=== PATIENT | female | born 1960 | race Caucasian/White ===

== ENCOUNTER → 2016-05-22 | Outpatient (CLI) | payer BC | LOC: RAD 11:33 | PROVIDERS: ATTEND Family Medicine | DX: Z12.31 Encounter for screening mammogram for malignant neoplasm of breast (principal) ==

== ENCOUNTER 2016-07-11 06:31 | Day surgery (SDC) | payer BC ==
[~2016-07-11] VITALS: Ht 162.6 cm; Wt 131.0 kg
[~2016-07-11 06:31] MED LIST: AMOX500C5 PO; ATN50T PO; CALC-701 PO; LACTATED RINGERS 1,000 ML IV SCH; LSNP10T PO; MAGN250T35 PO; SERT50TA2 PO; SERT50TA9 PO; SODIUM CHLORIDE FLUSH 3 ML SYR IV PRN; TURM500C8 PO
--- OUTSIDE RECORDS SUMMARY | 2016-07-11 06:35 | XMS REPORT | Continuity of Care Document ---
Author Author [facility] Address Unknown Phone Unavailable Allergies Medications Problems Date Dx Coded Attending Type Code Diagnosis Diagnosed By 07/08/2013 Randy Medley MD Ot V43.65 KNEE JOINT REPLACEMENT STATUS 07/08/2013 Randy Medley MD, Ot V54.81 AFTERCARE FOLLOWING JOINT REPLACEMENT 07/08/2013 Randy Medley MD, Ot V57.1 PHYSICAL THERAPY NEC 12/14/2015 STEVEN BERRY Ot J02.9 ACUTE PHARYNGITIS, UNSPECIFIED 01/28/2016 STEVEN BERRY Ot J02.9 ACUTE PHARYNGITIS, UNSPECIFIED 03/03/2016 STEVEN BERRY Ot J02.9 ACUTE PHARYNGITIS, UNSPECIFIED 03/04/2016 STEVEN BERRY Ot J02.9 ACUTE PHARYNGITIS, UNSPECIFIED 05/26/2016 REGGIE CLARK MD Ot Z12.31 ENCNTR SCREEN MAMMOGRAM FOR MALIGNANT NE 05/26/2016 REGGIE CLARK MD, Ot Z12.31 ENCNTR SCREEN MAMMOGRAM FOR MALIGNANT NE 06/04/2016 REGGIE CLARK MD, Ot Z12.31 ENCNTR SCREEN MAMMOGRAM FOR MALIGNANT NE 06/24/2016 STEVEN BERRY Ot J02.9 ACUTE PHARYNGITIS, UNSPECIFIED 06/24/2016 REGGIE CLARK MD Ot Z12.31 ENCNTR SCREEN MAMMOGRAM FOR MALIGNANT NE 06/26/2016 STEVEN BERRY Ot J02.9 ACUTE PHARYNGITIS, UNSPECIFIED 06/26/2016 REGGIE CLARK MD, Ot Z12.31 ENCNTR SCREEN MAMMOGRAM FOR MALIGNANT NE Procedures Results Encounters ACCT No. Visit Date/Time Discharge Status Pt. Type Provider Facility Loc./Unit Complaint [id number] 07/06/2013 11:00:00 2013 14:30:00 DIS Outpatient Randy Medley MD [facility] PT R TKR [id number] 05/22/2016 11:33:00 ACT Outpatient EDUARDO BROWN, REGGIE [facility] RAD MAMMO SCREENING [id number] 12/08/2015 12:17:00 [facility]
[2016-07-11 06:47] VITALS: BP 130/78
[2016-07-11] MEDS ORDERED: MIDAZOLAM 2 MG/2 ML (VERSED) VIAL ONE (07:12)
[2016-07-11] MEDS ORDERED: PROPOFOL 20 ML IV ONE (07:12)
[2016-07-11] MEDS ORDERED: ALFENTANIL 500 MCG/ML (ALFENTA) 5 ML AMP IV ONE (07:12)
[2016-07-11 08:07] VITALS: BP 108/58
[2016-07-11 08:38] VITALS: BP 108/58
--- NOTE | 2016-07-11 10:50 | OPERATIVE REPORT ---
DATE OF OPERATION: 07/10/2016 PRE-OPERATIVE DIAGNOSIS: Screening colonoscopy POST-OPERATIVE DIAGNOSIS: Colon polyps OPERATIVE PROCEDURE: Total colonoscopy with polypectomy (endoscopic mucosal resection) SURGEON: Miguelangel Brunson MD ANESTHESIA: Monitored anesthesia care FINDINGS: 1. The bowel prep was good. 2. Two small polyps were seen and removed, one at 60 cm which was larger, and one at 80 cm, which was very sessile. Pathology is pending. 3. No diverticula, inflammation or angiodysplasia were seen. INDICATIONS: The patient is a 55-year-old referred by Dr. Nieto for colonoscopy screening. She has not had any bowel habit changes and her family history is negative for colorectal cancer. DESCRIPTION OF PROCEDURE: The patient was informed of the risks and benefits and agreed. She was placed in the left lateral decubitus position and administered IV sedation. When properly sedated a rectal exam was performed, which was normal. The lighted endoscope was passed into the rectum and advanced along the colon. Within the colon at 60 cm, a nodular polyp was seen and removed using saline lift and cautery snare. The scope was then advanced along the rest of the colon to the cecum where the ileocecal valve and the appendiceal orifice were easily seen. The scope was slowly brought back through the ascending, transverse, descending and sigmoid colon. At 80 cm, a flat lesion was noted that may be a polyp, or maybe some other entity, but I removed it just to be sure using the endoscopic mucosal resection technique. The scope was withdrawn through the rest of the colon. No other polyps or neoplasia were seen. The rectum appeared normal on regular view and retroflexion. The scope was removed completing the procedure. The patient tolerated the procedure without complications.
== END 2016-07-11 08:40 | disposition home or self-care (01) ==
LOC: ASC 06:31
PROVIDERS: ATTEND Surgery
DX: Z12.11 Encounter for screening for malignant neoplasm of colon (principal); D12.4 Benign neoplasm of descending colon; I10 Essential (primary) hypertension; E03.9 Hypothyroidism, unspecified; E66.01 Morbid (severe) obesity due to excess calories; Z68.43 Body mass index [BMI] 50.0-59.9, adult; R00.2 Palpitations; Z80.0 Family history of malignant neoplasm of digestive organs; Z80.3 Family history of malignant neoplasm of breast; Z80.8 Family history of malignant neoplasm of other organs or systems; Z86.73 Personal history of transient ischemic attack (TIA), and cerebral infarction without residual deficits
CPT/HCPCS: 45390; 93005; J2250; J7120; 88305